=== PATIENT | female | born 1980 | race Caucasian/White ===

== ENCOUNTER 2017-12-20 09:16 | Emergency (ER) | payer OTHER ==
[2017-12-20] MEDS: FLUORESCEIN OPHTH 1 MG STRIP OS (12:53)
[2017-12-20] MEDS: IRRIGATION OPHTH SOLN (EYE WASH) 120ML OS (12:53)
[2017-12-20] MEDS: TETRACAINE 0.5% OPHTH SOLN 4ML OS (12:54)
[2017-12-20] MEDS: ERYTHROMYCIN OPHTH OINT OS (13:49)
== END 2017-12-20 13:51 | disposition home or self-care (01) ==
LOC: M ED 09:16
DX: S05.02XA Injury of conjunctiva and corneal abrasion without foreign body, left eye, initial encounter (principal); X58.XXXA Exposure to other specified factors, initial encounter; Y92.099 Unspecified place in other non-institutional residence as the place of occurrence of the external cause; Y93.E5 Activity, floor mopping and cleaning; Y99.9 Unspecified external cause status; Z79.899 Other long term (current) drug therapy
CPT/HCPCS: 99283